=== PATIENT | male | born 1945 | race Caucasian/White ===

== ENCOUNTER → 2020-05-25 09:11 | Outpatient (CLI) | payer MEDICARE, MEDICAID, SELFPAY ==
--- NOTE | ~2020-05-25 | CT_ITS ---
EXAMINATION: CT sinus wo con DATE: 05/25/2020 09:33 INDICATION: Chronic sinusitis TECHNIQUE: Computed tomography (CT) of the paranasal sinuses was performed without intravenous contra st. The dose-length product (DLP) was 286.20 mGy-cm. Iterative reconstruction was used. COMPARISON: None FINDINGS: There is normal development and pneumatization of the paranasal sinuses. There is mild muco josefina thickening of the right frontal sinus. There is moderate opacification of the anterior ethmoidal cells, right greater than left. Moderate thickening is also seen in the inferior aspect of the left m axillary sinus. Mild mucosal thickening is noted in the right maxillary sinus. The sphenoid sinuses a re clear. The bilateral ostiomeatal complexes are opacified. There is partial opacification of the le ft mastoid air cells. Visualized soft tissues are unremarkable. IMPRESSION: 1. Sinus disease as detailed above. Reviewed, dictated and finalized at location A.
== END ==
PROVIDERS: Visit Provider Otolaryngology
DX: J32.9 Chronic sinusitis, unspecified (principal)
CPT/HCPCS: 70486

== ENCOUNTER → 2021-01-05 08:48 | Outpatient (CLI) | payer MEDICARE, MEDICAID, SELFPAY ==
--- NOTE | ~2021-01-05 | XR_ITS ---
EXAMINATION: XR chest 2V 01/05/2021 09:06 INDICATION: Cough for 15 months PROCEDURE: 2 view chest COMPARISON: No prior studies for comparison. FINDINGS: The lungs are clear. The cardiomediastinal silhouette is within normal limits. There are no pleural effusions. There is no pneumothorax suspected. There is calcified granuloma left midlung zone. There is left basilar atelectasis/scarring. IMPRESSION: 1: Left basilar atelectasis/scarring. Reviewed, dictated and finalized at location B.
== END ==
PROVIDERS: PCP Family Medicine; Visit Provider Family Medicine
DX: R05 Cough (principal); Z87.891 Personal history of nicotine dependence; J98.11 Atelectasis
CPT/HCPCS: 71046

== ENCOUNTER 2023-01-02 10:03 | Emergency (ER) | payer OTHER, MEDICARE, MEDICAID, SELFPAY ==
[2023-01-02 10:26] VITALS: BP 176/69; PULSE 63; RESP 16; TEMP 35.9; O2SAT 99
--- NOTE | 2023-01-02 10:49 | ED.GENADULT ---
HPI - General Adult General Chief complaint: Unspecified Stated complaint: lt rib injury Time Seen by Provider: 01/02/23 10:49 Source: patient Mode of arrival: ambulatory Limitations: no limitations Related Data Home Medications Medication Instructions Recorded Confirmed ascorbic acid (vitamin C) 1,000 mg 2 gm PO DAILY 01/27/20 04/14/20 tablet aspirin 81 mg tablet,delayed 81 mg PO DAILY 01/27/20 04/14/20 release (Adult Low Dose Aspirin) boron 6 mg tablet mg PO 01/27/20 04/14/20 cholecalciferol (vitamin D3) 50 50 mcg PO DAILY 01/27/20 04/14/20 mcg (2,000 unit) capsule (D3-1999) coenzyme [id number] 100 mg-100 cap PO 01/27/20 04/14/20 unit capsule copper gluconate 2 mg tablet 4 mg PO DAILY 01/27/20 04/14/20 lactobacillus combination no.8 3 3,000 mmu cells PO DAILY 01/27/20 04/14/20 billion cell capsule (Adult Probiotic) magnesium oxide,aspartate,citr mg PO 01/27/20 04/14/20 (Triple Magnesium Complex) omega-3 fatty acids 1,000 mg 1,000 mg PO DAILY 01/27/20 04/14/20 capsule selenium 200 mcg tablet 200 mcg PO DAILY 01/27/20 04/14/20 vitamin E 268 mg (400 unit) capsule 400 unit PO DAILY 01/27/20 04/14/20 zinc acetate 50 mg (zinc) capsule 100 mg PO DAILY 01/27/20 04/14/20 (Galzin) niacin 100 mg tablet 300 mg PO TID 01/19/21 Allergies Allergy/AdvReac Type Severity Reaction Status Date / Time epinephrine AdvReac blood Verified 01/02/23 10:47 pressure drop PMF Past Medical History Medical History Aneurysm Coronary artery disease Heart attack Heart disease Family History Family History Mother Cancer Father , unknown No problems noted. Grandparent No problems noted. Grandparent No problems noted. Social History Social History (Updated 05/21/21 @ 10:37 by Lucy Zhang CMA) Smoking packs per day: 2 Smoking cigarettes per day: 40.0 Years smoked: 45 Smoking pack-years: 90.00 Smoking status: Former smoker Tobacco type: cigarettes Smoking end date: 10/09/13 Alcohol intake: current Drinks per week: 6 Alcohol use details: beer and scotch Substance use: never Course Vital Signs Vital signs: Vital Signs Temperature 35.9 C L 01/02/23 10:26 Pulse Rate 63 01/02/23 10:26 Respiratory Rate 16 01/02/23 10:26 Blood Pressure 176/69 H 01/02/23 10:26 Pulse Oximetry 99 01/02/23 10:26 Oxygen Delivery Room Air 01/02/23 10:26 Temperature 35.9 C L 01/02/23 10:26 Pulse Rate 63 01/02/23 10:26 Respiratory Rate 16 01/02/23 10:26 Blood Pressure 176/69 H 01/02/23 10:26 Pulse Oximetry 99 01/02/23 10:26 Oxygen Delivery Room Air 01/02/23 10:26 Medical Decision Making Vital Signs Vital Signs: Vital Signs Temperature 35.9 C L 01/02/23 10:26 Pulse Rate 63 01/02/23 10:26 Respiratory Rate 16 01/02/23 10:26 Blood Pressure 176/69 H 01/02/23 10:26 Pulse Oximetry 99 01/02/23 10:26 Oxygen Delivery Room Air 01/02/23 10:26 Temperature 35.9 C L 01/02/23 10:26 Pulse Rate 63 01/02/23 10:26 Respiratory Rate 16 01/02/23 10:26 Blood Pressure 176/69 H 01/02/23 10:26 Pulse Oximetry 99 01/02/23 10:26 Oxygen Delivery Room Air 01/02/23 10:26 Discharge Plan Discharge Prescriptions: No Action coenzyme [id number] E 100-100 mg-unit capsule PO vitamin E 400 unit capsule 400 unit PO DAILY cholecalciferol (vitamin D3) [D3-2000] 50 mcg (2,000 unit) capsule 50 mcg PO DAILY ascorbic acid (vitamin C) 1,000 mg tablet 2 gm PO DAILY selenium 200 mcg tablet 200 mcg PO DAILY aspirin [Adult Low Dose Aspirin] 81 mg tablet,delayed release (DR/EC) 81 mg PO DAILY copper gluconate 2 mg tablet 4 mg PO DAILY Galzin 50 mg (zinc) capsule 100 mg PO DAILY Rx Instructions: swallow whole; d
== END 2023-01-02 11:00 | disposition left against medical advice (07) ==
PROVIDERS: Emergency Provider Nurse Practitioner Family
DX: Z02.89 Encounter for other administrative examinations (principal)
CPT/HCPCS: 99199